=== PATIENT | female | born 1970 | race Caucasian/White ===

== ENCOUNTER 2024-08-06 09:03 | Inpatient (IN) | payer OTHER ==
[~2024-08-06] VITALS: Ht 149.8 cm; Wt 81.8 kg
[2024-08-06 09:14] VITALS: BP 99/75
[2024-08-06] MEDS ORDERED: SODIUM CHLORIDE 0.9% 1,000 ML IV SCH ×2 (09:25→18:30)
[2024-08-06 09:47] LABS: MEAN CELL VOLUME 79.3 fl (81.0-99.0); MEAN CORPUSCULAR HGB 24.8 pg (27.0-31.0); MEAN PLATELET VOLUME 8.3 fl (9.6-12.3); NUCLEATED RED BLOOD CELL 0.0 % (0.0-0.0); NUCLEATED RED BLOOD CELL 0.0 10*3/uL (0.0-0.0); PLATELET COUNT AUTOMATED 247 10*3/uL (130-400); RED CELL DISTRI WIDTH 15.8 % (0-14.5)
[2024-08-06 09:50] LABS: MANUAL DIFF REFLEX YES
[2024-08-06] MEDS ORDERED: ACETAMINOPHEN 100 ML IV ONE (09:50)
[2024-08-06 09:55] LABS: ACT PARTIAL THROMBO TIME 23.1 SECONDS (20.0-32.1)
[2024-08-06 10:16] LABS: PLATELET SUFFICIENCY NORMAL (NORMAL); VACUOLATION OF NEUTROPHILS SLIGHT
[2024-08-06 10:27] LABS: BUN 11 mg/dl (9-23); SGPT/ALT 28 U/L (5-49)
[2024-08-06] MEDS ORDERED: MAGNESIUM OXIDE 400 MG TAB PO ONE (10:35)
[2024-08-06] MEDS ORDERED: POTASSIUM CHLORIDE 20 MEQ TAB PO ONE (10:35)
[2024-08-06] MEDS ORDERED: AZITHROMYCIN 250 MG TAB PO ONE (10:50)
[2024-08-06 11:07] VITALS: BP 112/54
[2024-08-06] MEDS ORDERED: Acetaminophen/Hydrocodone 5 MG/325 MG TABLET PO PRN (12:25)
[2024-08-06] MEDS ORDERED: BISACODYL 10 MG SUPP R PRN (12:25)
[2024-08-06] MEDS ORDERED: Ondansetron Hydrochloride 4 MG/2 ML VIAL IV PRN (12:25)
[2024-08-06] MEDS ORDERED: ACETAMINOPHEN 325 MG TAB PO PRN (12:25)
[2024-08-06] MEDS ORDERED: BISACODYL 5 MG TAB PO PRN (12:25)
[2024-08-06 12:38] LABS: BILIRUBIN Negative (Negative); BLOOD Negative (Negative); CLARITY Clear (Clear); COLOR Yellow (Yellow); KETONE Negative (Negative); LEUKO ESTERASE Negative (Negative); NITRITE Negative (Negative); PH 5.5 (4.5-8.0); SPECIFIC GRAVITY 1.010 (1.001-1.030); UROBILINOGEN 0.2 E.U./dl (0.0-1.0)
[2024-08-06] MEDS ORDERED: ESCITALOPRAM OX20 MG PO (13:10)
[2024-08-06] MEDS ORDERED: BUSPIRONE HCL10 MG PO (13:10)
[2024-08-06] MEDS ORDERED: ALPRAZOLAM0.5 M3 PO (13:10)
[2024-08-06] MEDS ORDERED: MELOXICAM15 MG PO (13:11)
[2024-08-06] MEDS ORDERED: HYDROXYZINE PAM25 M1 PO (13:11)
[2024-08-06] MEDS ORDERED: VENLAFAXINE HY150 M2 PO (13:11)
[2024-08-06 13:14] VITALS: BP 107/56
[2024-08-06 13:20] LABS: BACTERIA 2+
[2024-08-06 17:06] VITALS: BP 91/49
[2024-08-06] MEDS ORDERED: Pantoprazole Sodium 20 MG TAB PO ONE (17:55)
[2024-08-06] MEDS ORDERED: SODIUM CHLORIDE 0.9% 100 ML BAG IV ONE (18:00)
[2024-08-06] MEDS ORDERED: IOHEXOL 350 MG/ML 100 ML VIAL IV ONE ×2 (18:00→18:23)
[2024-08-06 18:20] VITALS: BP 111/60
[2024-08-06] MEDS ORDERED: SODIUM CHLORIDE 0.9% 100 ML IV ONE (18:23)
[2024-08-06 20:00] VITALS: BP 108/67
[2024-08-06] MEDS ORDERED: SUCRALFATE 1 GM TAB PO ONE (22:00)
[2024-08-06] MEDS ORDERED: GUAIFENESIN 600 MG TAB ER PO SCH (22:00)
[2024-08-07] VITALS: BP 124/67
[2024-08-07] MEDS ORDERED: Pantoprazole Sodium 20 MG TAB PO SCH (06:00)
[2024-08-07 07:09] LABS: BASO # 0.1 10*3/uL (0.0-0.1); BASO % 0.3 % (0.0-1.0); EOS # 0.2 10*3/uL (0.0-0.4); EOS % 0.8 % (1.0-4.0); MEAN CELL VOLUME 80.1 fl (81.0-99.0); MEAN CORPUSCULAR HGB 24.3 pg (27.0-31.0); MEAN PLATELET VOLUME 8.5 fl (9.6-12.3); MONO # 1.3 10*3/uL (0.1-1.0); MONO % 5.7 % (3.0-9.0); NEUT # 17.9 10*3/uL (2.3-7.9); NEUT % 81.0 % (47.0-73.0); NUCLEATED RED BLOOD CELL 0.0 % (0.0-0.0); NUCLEATED RED BLOOD CELL 0.0 10*3/uL (0.0-0.0); PLATELET COUNT AUTOMATED 274 10*3/uL (130-400); RED CELL DISTRI WIDTH 15.9 % (0-14.5)
[2024-08-07 07:31] LABS: BUN 8 mg/dl (9-23); LDL CHOLESTEROL 88 mg/dL (9-159); SGPT/ALT 21 U/L (5-49)
[2024-08-07 08:00] VITALS: BP 120/67
[2024-08-07] MEDS ORDERED: Meloxicam 15 MG TAB PO SCH (10:00)
[2024-08-07] MEDS ORDERED: ESCITALOPRAM OXALATE 20 MG TAB PO SCH (10:00)
[2024-08-07] MEDS ORDERED: Venlafaxine Hydrochloride 75 MG CAP PO SCH (10:00)
[2024-08-07] MEDS ORDERED: busPIRone Hydrochloride 10 MG TAB PO SCH (10:00)
[2024-08-07] MEDS ORDERED: ALPRAZolam 0.5 MG TAB PO SCH (10:00)
[2024-08-07 12:00] VITALS: BP 113/71
[2024-08-07] MEDS ORDERED: ACETAMINOPHEN 80 ML IV ONE (13:00)
[2024-08-07] MEDS ORDERED: PERFLUTREN PROTEIN-A MICROSPHR 3 ML VIAL IV ONE (14:56)
[2024-08-07 16:00] VITALS: BP 119/73
[2024-08-07 20:00] VITALS: BP 129/50
[2024-08-08] VITALS: BP 123/74
[2024-08-08 06:51] LABS: BASO # 0.1 10*3/uL (0.0-0.1); BASO % 0.3 % (0.0-1.0); EOS # 0.3 10*3/uL (0.0-0.4); EOS % 1.7 % (1.0-4.0); MEAN CELL VOLUME 78.4 fl (81.0-99.0); MEAN CORPUSCULAR HGB 24.5 pg (27.0-31.0); MEAN PLATELET VOLUME 8.5 fl (9.6-12.3); MONO # 1.1 10*3/uL (0.1-1.0); MONO % 5.9 % (3.0-9.0); NEUT # 14.1 10*3/uL (2.3-7.9); NEUT % 77.9 % (47.0-73.0); NUCLEATED RED BLOOD CELL 0.0 % (0.0-0.0); NUCLEATED RED BLOOD CELL 0.0 10*3/uL (0.0-0.0); PLATELET COUNT AUTOMATED 279 10*3/uL (130-400); RED CELL DISTRI WIDTH 15.9 % (0-14.5)
[2024-08-08 08:00] VITALS: BP 102/63
[2024-08-08] MEDS ORDERED: FOLIC ACID 0.4 MG TAB PO SCH (10:00)
[2024-08-08] MEDS ORDERED: MUPIROCIN 15 GM TUBE T SCH (10:00)
[2024-08-08] MEDS ORDERED: Promethazine Hydrochloride 25 MG/ML VIAL IV ONE (11:55)
[2024-08-08 16:00] VITALS: BP 120/72
[2024-08-08] MEDS ORDERED: SUCRALFATE 1 GM TAB PO SCH (16:30)
[2024-08-08] MEDS ORDERED: busPIRone Hydrochloride 10 MG TAB PO SCH (22:00)
[2024-08-08] MEDS ORDERED: ESCITALOPRAM OXALATE 20 MG TAB PO SCH (22:00)
[2024-08-09] VITALS: BP 126/74
[2024-08-09 06:37] LABS: BASO # 0.0 10*3/uL (0.0-0.1); BASO % 0.2 % (0.0-1.0); EOS # 0.3 10*3/uL (0.0-0.4); EOS % 2.5 % (1.0-4.0); MEAN CELL VOLUME 79.4 fl (81.0-99.0); MEAN CORPUSCULAR HGB 24.5 pg (27.0-31.0); MEAN PLATELET VOLUME 8.5 fl (9.6-12.3); MONO # 0.7 10*3/uL (0.1-1.0); MONO % 6.0 % (3.0-9.0); NEUT # 8.8 10*3/uL (2.3-7.9); NEUT % 72.0 % (47.0-73.0); NUCLEATED RED BLOOD CELL 0.0 % (0.0-0.0); NUCLEATED RED BLOOD CELL 0.0 10*3/uL (0.0-0.0); PLATELET COUNT AUTOMATED 316 10*3/uL (130-400); RED CELL DISTRI WIDTH 16.1 % (0-14.5)
[2024-08-09 08:00] VITALS: BP 108/66
[2024-08-09] MEDS ORDERED: busPIRone Hydrochloride 5 MG TAB PO SCH (10:00)
[2024-08-09] MEDS ORDERED: PHARMASSURE FO0.4 MG PO (10:40)
[2024-08-09] MEDS ORDERED: Carafate1 GM PO (10:40)
[2024-08-09] MEDS ORDERED: PANTOPRAZOLE SO40 MG PO (10:40)
[2024-08-09] MEDS ORDERED: MUCUS RELIEF E600 MG PO (10:40)
[2024-08-09] MEDS ORDERED: LEVOFLOXACIN750 M2 PO (10:40)
[2024-08-09] MEDS ORDERED: ALPRAZolam 0.5 MG TAB PO SCH (22:00)
== END 2024-08-09 12:59 | disposition home or self-care (01) | DRG 871 ==
LOC: ED 09:03 → 5E 12:16 → EDHOLD 12:16 → 5E 17:34
PROVIDERS: Internal Medicine; ADMIT Internal Medicine; ATTEND Internal Medicine
DX: A41.9 Sepsis, unspecified organism (principal); J69.0 Pneumonitis due to inhalation of food and vomit; J96.01 Acute respiratory failure with hypoxia; E44.1 Mild protein-calorie malnutrition; E87.20 Acidosis, unspecified; R65.20 Severe sepsis without septic shock; F41.9 Anxiety disorder, unspecified; G90.9 Disorder of the autonomic nervous system, unspecified; E87.6 Hypokalemia; R73.9 Hyperglycemia, unspecified; E83.42 Hypomagnesemia; F17.210 Nicotine dependence, cigarettes, uncomplicated; Z20.822 Contact with and (suspected) exposure to COVID-19; E53.8 Deficiency of other specified B group vitamins; D64.9 Anemia, unspecified; E78.5 Hyperlipidemia, unspecified; F32.A Depression, unspecified; K58.0 Irritable bowel syndrome with diarrhea; F43.10 Post-traumatic stress disorder, unspecified; Z98.891 History of uterine scar from previous surgery; Z85.828 Personal history of other malignant neoplasm of skin; Z71.6 Tobacco abuse counseling; Z83.1 Family history of other infectious and parasitic diseases; Z68.36 Body mass index [BMI] 36.0-36.9, adult